=== PATIENT | female | born 1985 | race Caucasian/White ===

== ENCOUNTER 2022-02-26 02:00 | Emergency (ER) | payer BC ==
[2022-02-26] MEDS ORDERED: ACETAMINOPHEN 500 MG TAB ONE (02:34)
[2022-02-26 02:54] LABS: Urine Blood 2+ (Negative); Urine Glucose Negative (Negative); Urine Protein Negative (Negative)
[2022-02-26 03:57] LABS: Hematocrit 34.3 % (36.0-45.0); Lymphocytes % 17.7 % (15.3-44.8); MCV 89.4 fL (80-100); RBC Red Blood Cell Count 3.84 M/uL (3.86-4.86)
[2022-02-26 04:20] LABS: Potassium 3.5 mmol/L (3.5-5.1)
--- NOTE | 2022-02-26 04:53 | ER ---
Nurse's Notes [facility] Name: Gideon Brock Age: 36 yrs Sex: Female : 1985 Arrival Date: 02/26/2022 Time: 02:03 Bed 7 Private MD: Diagnosis: Incomplete spontaneous without complication Presentation: 02/26 02:15 Chief complaint: Patient states: "I had a miscarriage at 0030 today. I called my doctor as6 and they said to come here". Coronavirus screen: At this time, the client does not indicate any symptoms associated with coronavirus-19. Ebola Screen: No symptoms or risks identified at this time. Initial Sepsis Screen: Does the patient meet any 2 criteria? No. Patient's initial sepsis screen is negative. Does the patient have a suspected source of infection? No. Patient's initial sepsis screen is negative. Risk Assessment: Do you want to hurt yourself or someone else? Patient reports no desire to harm self or others. Onset of symptoms was February 26, 2022 at 00:30. 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 - Social history:: Smoking status: Patient denies any tobacco usage or history of. - Family history:: not pertinent. Screenin:18 Abuse screen: Denies threats or abuse. Denies injuries from another. Nutritional as6 screening: No deficits noted. Tuberculosis screening: No symptoms or risk factors identified. Fall Risk None identified. Assessment: 02:47 General: Appears in no apparent distress. Behavior is calm, cooperative. General: as6 Behavior is crying. Pain: Complains of pain in right lower quadrant and left lower quadrant. Pain: Complains of pain in low back area. Neuro: Level of Consciousness is awake, alert, obeys commands. Respiratory: Respiratory effort is even, unlabored. : Reports cramping, vaginal bleeding that is. 03:30 Reassessment: No changes from previously documented assessment. Patient and/or family kl updated on plan of care and expected duration. Pain level reassessed. Patient is alert, oriented x 3, equal unlabored respirations, skin warm/dry/pink. 04:30 Reassessment: No changes from previously documented assessment. Patient and/or family kl updated on plan of care and expected duration. Pain level reassessed. Patient is alert, oriented x 3, equal unlabored respirations, skin warm/dry/pink. Vital Signs: 02:15 BP 126 / 98; Pulse 98; Resp 18 S; Temp 97.8(O); Pulse Ox 98% on R/A; Weight 88.45 kg as6 (R); Height 5 ft. 8 in. (172.72 cm) (R); Pain 4/10; 05:01 BP 132 / 78; Pulse 88; Resp 18; Pulse Ox 99% on R/A; Pain 0/10; kl 02:15 Body Mass Index 29.65 (88.45 kg, 172.72 cm) as6 ED Course: 02:03 Patient arrived in ED. ja2 02:04 Familia Johnston MD is Attending Physician. rt 02:15 Gordy Fraga, RN is Primary Nurse. as6 02:17 Triage completed. as6 02:18 Arm band placed on. as6 02:18 Bed in low position. Call light in reach. as6 05:02 No provider procedures requiring assistance completed. Inserted Patient did not have IV kl access during this emergency room visit. Administered Medications: 02:47 Drug: Tylenol 1000 mg Route: PO; as6 Medication: 02:18 VIS not applicable for this client. as6 Outcome: 04:52 Discharge ordered by . rt 05:02 Discharged to home ambulatory, with family. kl 05:02 Condition: stable 05:02 Discharge instructions given to patient, Instructed on discharge instructions, follow up and referral plans. medication usage, Demonstrated understanding of instructions, follow-up care, medications. 05:03 Patient left the ED. Signatures: Nohemi Amezcua RN RN kl Alexander, Jessica ja2 Gordy Fraga RN RN as6 Familia Johnston MD MD rt
--- NOTE | 2022-02-26 04:53 | EDPHYS ---
Physician Documentation [facility] Name: Gideon Brock Age: 36 yrs Sex: Female : 1985 Arrival Date: 02/26/2022 Time: 02:03 Bed 7 Private MD: ED Physician Familia Johnston HPI: 02/26 03:55 This 36 yrs old Female presents to ER via Ambulatory with complaints of Vaginal rt Bleeding, + Preg <12wks, Abdominal Cramping. 03:55 The patient presents to the emergency department with vaginal bleeding, that is rt moderate. The estimated gestational age is 12 weeks. Previous pregnancies: the patient has never been . Associated signs and symptoms: Pertinent positives: Abdominal cramping. Patient presents to the ED with reported miscarriage. Patient states that she has been having vaginal bleeding for few days, worsened today, patient had passage of tissue to include what she describes as the fetus and placenta which she brought with her. She states that this improved her vaginal bleeding to about the level of a period. She reports suprapubic cramping but denies other acute complaints at this time. Symptoms are moderate in severity, no other aggravating alleviating factors.. 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 - Social history:: Smoking status: Patient denies any tobacco usage or history of. - Family history:: not pertinent. ROS: 03:55 Constitutional: Negative for fever, chills, and weight loss, Eyes: Negative for injury, rt pain, redness, and discharge, ENT: Negative for injury, pain, and discharge, Neck: Negative for injury, pain, and swelling, Cardiovascular: Negative for chest pain, palpitations, and edema, Respiratory: Negative for shortness of breath, cough, wheezing, and pleuritic chest pain, MS/Extremity: Negative for injury and deformity, Skin: Negative for injury, rash, and discoloration, Neuro: Negative for headache, weakness, numbness, tingling, and seizure, Psych: Negative for depression, anxiety, suicide ideation, homicidal ideation, and hallucinations. 03:55 Abdomen/GI: Positive for Abdominal cramping, Negative for nausea, vomiting, and diarrhea. 03:55 : Positive for vaginal bleeding, Negative for urinary symptoms. Exam: 03:55 Constitutional: This is a well developed, well nourished patient who is awake, alert, rt and in no acute distress. Head/Face: Normocephalic, atraumatic. Eyes: Pupils equal round and reactive to light, extra-ocular motions intact. Lids and lashes normal. Conjunctiva and sclera are non-icteric and not injected. Cornea within normal limits. Periorbital areas with no swelling, redness, or edema. ENT: Nares patent. No nasal discharge, no septal abnormalities noted. Tympanic membranes are normal and external auditory canals are clear. Oropharynx with no redness, swelling, or masses, exudates, or evidence of obstruction, uvula midline. Mucous membranes moist. Neck: Trachea midline, no thyromegaly or masses palpated, and no cervical lymphadenopathy. Supple, full range of motion without nuchal rigidity, or vertebral point tenderness. No Meningismus. Chest/axilla: Normal chest wall appearance and motion. Nontender with no deformity. No lesions are appreciated. Cardiovascular: Regular rate and rhythm with a normal S1 and S2. No gallops, murmurs, or rubs. Normal PMI, no JVD. No pulse deficits. Respiratory: Lungs have equal breath sounds bilaterally, clear to auscultation and percussion. No rales, rhonchi or wheezes noted. No increased work of breathing, no retractions or nasal flaring. Skin: Warm, dry with normal turgor. Normal color with no rashes, no lesions, and no evidence of cellulitis. MS/ Extremity: Pulses equal, no cyanosis. Neurovascular intact. Full, normal range of motion. Neuro: Awake and alert, GCS 15, oriented to person, place, time, and situation. Cranial nerves II-XII grossly intact. Motor strength 5/5 in all extremities. Sensory grossly intact. Cerebellar exam normal. Normal gait. Psych: Awake, alert, with orientation to person, place and time. Behavior, mood, and affect are within normal limits. 03:55 Abdomen/GI: mild Suprapubic tenderness without rebound, guarding, distention. Vital Signs: 02:15 BP 126 / 98; Pulse 98; Resp 18 S; Temp 97.8(O); Pulse Ox 98% on R/A; Weight 88.45 kg as6 (R); Height 5 ft. 8 in. (172.72 cm) (R); Pain 4/10; 05:01 BP 132 / 78; Pulse 88; Resp 18; Pulse Ox 99% on R/A; Pain 0/10; kl 02:15 Body Mass Index 29.65 (88.45 kg, 172.72 cm) as6 MDM: 02:13 Patient medically screened. rt 05:10 Differential diagnosis: threatened Ab, inevitable Ab, complete Ab, ectopic . rt Data reviewed: vital signs, nurses notes, lab test result(s), radiologic studies. ED course: Who presents to the ED with bleeding the first trimester, has passed tissue, brought in apparent intake, will be sent for path review. Labs are benign, H\T\H is stable. Ultrasound reveals small amount of retained products, as it is early on in the miscarriage process, do not believe that she requires D\T\C, discussed this with the patient was in agreement this plan. Strict return precautions were given. Patient is stable for outpatient care, return precautions discussed.. 02/26 02:14 Order name: Abo/rh Typing rt 02/26 02:14 Order name: Basic Metabolic Panel rt 02/26 02:14 Order name: CBC with Diff rt 02/26 02:14 Order name: Quantitative Hcg rt 02/26 02:54 Order name: Urine Dipstick-Ancillary; Complete Time: 04:15 EDMS 02/26 03:58 Order name: CBC with Automated Diff; Complete Time: 04:15 EDMS 02/26 02:14 Order name: US Transvaginal Ob rt 02/26 02:14 Order name: Labs collected and sent; Complete Time: 02:47 rt 02/26 04:20 Order name: Basic Metabolic Panel; Complete Time: 04:33 EDMS 02/26 04:20 Order name: HCG, Quantitative; Complete Time: 04:33 EDMS 02/26 04:41 Order name: ABO/RH no charge EDMS 02/26 04:42 Order name: ABO/RH typing EDMS 02/26 02:14 Order name: NPO; Complete Time: 02:20 rt 02/26 02:14 Order name: Urine Dipstick-Ancillary (obtain specimen); Complete Time: 02:47 rt Administered Medications: 02:47 Drug: Tylenol 1000 mg Route: PO; as6 Disposition Summary: 02/26/22 04:52 Discharge Ordered Location: Home rt Problem: new rt Symptoms: are unchanged rt Condition: Stable rt Diagnosis - Incomplete spontaneous without complication rt Followup: rt - With: Private Physician - When: 2 - 3 days - Reason: Discharge Instructions: - Discharge Summary Sheet rt - Miscarriage rt Forms: - Medication Reconciliation Form rt - Thank You Letter rt - Antibiotic Education rt - Prescription Opioid Use rt Signatures: Dispatcher [employer] Gordy Kunz RN RN as6 Familia Johnston MD MD rt
[2022-02-26 05:13] VITALS: TEMP 97.8
[2022-02-26 05:18] VITALS: BP 132/78; O2SAT 99
--- NOTE | 2022-02-26 15:39 | RAD REPORT ---
EXAM DESCRIPTION: US , Transvaginal CLINICAL HISTORY: The patient is 36 years old and is Female; , cramping LMP November 2021. TECHNIQUE: Real-time transvaginal obstetrical ultrasound of the maternal pelvis and a first trimeste r with image documentation. Transvaginal imaging was used for better evaluation of the fe tus and adnexa. COMPARISON: No relevant prior studies available. FINDINGS: Gestation: There is an intrauterine complex fluid collection that may represent hemorrha ge and abnormal gestational sac, approximately 1.4 cm in greatest dimension. No yolk sac or jim e visualized. Placenta/amniotic fluid: Cannot be adequately evaluated due to the early gestational age. Uterus/cervix: Uterus is 10.3 x 5.4 x 6.8 cm in size. No myometrial mass. Ovaries: Left ovary sought but not visualized. Right ovary 2.8 x 3.4 x 2.5 cm. Free fluid: No free fluid. IMPRESSION: 1. There is an intrauterine complex fluid collection that may represent hemorrhage and abnormal gestational sac, approximately 1.4 cm in greatest dimension. No yolk sac or pole visu alized. Findings may represent spontaneous in progress. Serial quantitative hCGs and short -term ultrasound follow-up recommended. 2. Left ovary sought but not visualized. Electronically signed by: Jazmin Santiago MD 02/26/2022 4:30 AM [employer]IL[employer]EMAN Due to temporary technical issues with the PACS/Fluency reporting system, reports are being signed by the in house radiologists without review as a courtesy to insure prompt reporting. The interpreting radiologist is fully responsible for the content of the report.
== END 2022-02-26 05:03 | disposition home or self-care (01) ==
LOC: ER 02:00
DX: O03.4 Incomplete spontaneous abortion without complication (principal)
CPT/HCPCS: 36415; 76817; 80048; 81003; 84702; 85025; 86900; 86901; 88305; 99283

== ENCOUNTER 2023-05-28 08:06 | Day surgery (SDC) | payer BC ==
[2023-05-27 16:31] LABS: Hematocrit 33.1 % (36.0-45.0); Lymphocytes % 32.1 % (15.3-44.8); MCV 78.7 fL (80-100); MPV 6.8 fL (7.6-11.3); Platelets 470 thou/uL (152-406)
[2023-05-27 16:43] LABS: ALT/SGPT 66 U/L (13-56); AST/SGOT 37 U/L (15-37); Albumin 3.7 g/dL (3.4-5.0); Alkaline Phosphatase 141 U/L (45-117); BUN Blood Urea Nitrogen 19 mg/dL (7-18); Bicarbonate 27 mEq/L (21-32); Bilirubin Total 0.2 mg/dL (0.2-1.0); Glomerular Filtration Rate 61 ml/min (=/>90); Glucose Level 88 mg/dL (74-106); Lipase 64 U/L (13-75); Potassium 3.6 mEq/L (3.5-5.1); Protein, Total 7.8 g/dL (6.4-8.2); Sodium Level 136 mEq/L (136-145)
[2023-05-27 16:44] LABS: Bilirubin Direct < 0.1 mg/dL (0-0.2); Bilirubin Indirect, Calculated ND mg/dL (0.2-0.8)
[2023-05-28] MEDS: Ringers Lactate 1,000 ML IV ONE (08:30)
[2023-05-28 08:36] LABS: Urine Specific Gravity/Preg 1.025 (1.005-1.030)
[2023-05-28] MEDS ORDERED: propofoL 200 MG/20 ML VIAL IV ONE (09:09)
[2023-05-28] MEDS ORDERED: FENTANYL CITR 100 MCG/2 ML ONE ×2 (09:09→10:51)
[2023-05-28] MEDS ORDERED: MIDAZOLAM HCL 2 MG/2 ML INJ ONE (09:09)
[2023-05-28] MEDS ORDERED: ONDANSETRON 4 MG/2 ML VIAL ONE ×2 (09:09→12:04)
[2023-05-28] MEDS ORDERED: ROCURONIUM 50 MG/5 ML VIAL IV ONE (09:09)
[2023-05-28] MEDS ORDERED: LIDOCAINE 2% MPF 5 ML VIAL ONE (09:10)
[2023-05-28] MEDS: CEFOXITIN SODIUM 1 GM/VIAL ONE (10:24)
[2023-05-28] MEDS ORDERED: GLYCOPYRROLATE 0.2 MG/ML SYR ONE (10:51)
--- NOTE | 2023-05-28 11:21 | P.BOP ---
Preoperative diagnosis: symptomatic cholelithiasis, Postoperative diagnosis: same plus umbilical hernia, intradominal adhesions Primary procedure: 1. Laparoscopic cholecystectomy Secondary procedure: 2. Open repair of umbilical hernia Estimated blood loss: <10cc Specimen: sac, GB Findings: see dicta Anesthesia: General Complications: None Transferred to: Recovery Room Condition: Good
[2023-05-28 11:27] VITALS: O2SAT 100
[2023-05-28] MEDS: FENTANYL CITR 100 MCG/2 ML ONE (11:38)
[2023-05-28] MEDS: PROMETHAZINE INJ 25 MG/ML AMP ONE (11:40)
[2023-05-28] MEDS: ACETAMINOPHEN 500 MG TAB ONE (13:00)
[2023-05-28 14:18] VITALS: BP 140/70; TEMP 97
--- NOTE | 2023-05-28 22:15 | DS ---
Date of Discharge: 05/28/2023 Diagnoses: Symptomatic cholelithiasis, acute cholecystitis, umbilical hernia, intraabdominal adhesio ns. Procedures: Laparoscopic cholecystectomy, open repair of umbilical hernia. Condition: Stable. Disposition: Home. Activity: As tolerated. No heavy lifting. Followup: Follow up in my office in 1 week, call for an appointment [phone]. Instructions: Keep area dry for 48 hours, then may shower, keep Steri-Strips intact. SHOBHA/MATT Voice ID: [id number] Report ID: [id number]
--- NOTE | 2023-05-28 22:33 | OP ---
Date of Procedure: 05/28/2023 Surgeon: Blayne Elkins MD Preoperative Diagnosis: Symptomatic cholelithiasis. Postoperative Diagnoses: Symptomatic cholelithiasis, umbilical hernia, intraabdominal adhesions. Procedures: Laparoscopic cholecystectomy, open repair of umbilical hernia. Estimated Blood Loss: Less than 10 cc. Specimens: Hernia sac and gallbladder. Findings: Patient has multiple adhesions of omentum to the gallbladder. The patient also has umbili william hernia with omentum on it. Anesthesia: General plus local. Indications: This is a case of a 37-year-old patient who comes to us with above diagnoses. We fully explained the benefits, alternatives, and risks of laparoscopic possible open cholecystectomy, which include, but not limited to infection, bleeding, damage to adjacent structures, anesthesia complicat ion, choledocholithiasis, bile leak, pancreatitis, [place], and . She also understands this may not relieve the symptoms. She might need more than one surgical intervention. She understood, signed a consent. Description Of Procedure: The patient brought to the operating room, placed in supine position, anes thesia was done without complication. Abdominal area was prepped and draped in usual sterile fashion . Marcaine 0.5% was injected for local anesthetic followed by sharp incision of the skin in the supr aumbilical region. At that moment, we noticed the patient to have an umbilical hernia, so we isolate d the hernia sac, removed it, opened the fascial edges, cleaned them and then after that, we used livia t as an access for our laparoscope. Before that, we used Vicryl #1 inside the fascia. Ayden trocar was carefully introduced. No bleeding was obtained. I placed 3 more trocars, 5 mm each one of them , in epigastric and upper quadrant area. There were so many omental adhesions to the gallbladder livia t indicate that this patient had this cholecystitis before, she described that in that she had many attacks weekly. For that reason, I proceeded to open the LigaSure. We are going to need re moving those adhesions that needs to be done, minimize bleeding and so we did that in a methodical fa shion, put a grasper in the fundus of the gallbladder, started to get adhesions down until we found t he infundibulum. We cleaned that area. At that moment, we put a grasper in the fundus of the gallbl adder, another one in infundibulum, retracting the gallbladder in the inferolateral fashion exposing the triangle of Calot, obtaining critical view. The cystic duct and cystic artery were clearly circumferentially and a connection between those and the gallbladder was clearly identified. I proceeded to ligate those by using at least 3 clips proximal and 1 clip distal, ligation in middle. Same was done with the cystic artery. No bile leak. No bleeding. The area of adhesions showed no bleeding. At that moment, I proceeded to remove the gallbladder from the liver using Bovie cauterize r. I removed it from abdominal cavity using EndoCatch through the umbilical incision. The area was inspected, once again, no bile leak, no bleeding. Gallbladder fossa was intact with no bleeding. Th e area of the lysis of adhesions with no bleeding. I proceeded to remove the trocars under direct vi tito, deflated pneumoperitoneum, closed the fascia with #1 Vicryl and umbilical hernia also with #1 V icryl. Irrigated subcutaneous tissue, closed with 3-0 chromic and skin in subcuticular fashion with 3-0 chromic and Steri-Strips on top. Sponge count and instrument counts correct. The patient tolera ra the procedure well. The patient sent to Recovery in stable condition. SHOBHA/MATT Voice ID: [id number] Report ID: [id number]
== END 2023-05-28 13:42 | disposition home or self-care (01) ==
LOC: OR 08:06
PROVIDERS: ATTEND Surgery
PROC: 0DNW4ZZ Release Peritoneum, Percutaneous Endoscopic Approach (ICD-10-PCS; 2023-05-28)
PROC: 0FT44ZZ Resection of Gallbladder, Percutaneous Endoscopic Approach (ICD-10-PCS; principal; 2023-05-28 10:30)
DX: K80.10 Calculus of gallbladder with chronic cholecystitis without obstruction (principal); K66.0 Peritoneal adhesions (postprocedural) (postinfection); R01.1 Cardiac murmur, unspecified
CPT/HCPCS: 36415; 80048; 80076; 81025; 83690; 85025; 88302; 88304; J0694; J2001; J2250; J2405; J2550; J2704; J3010; J7120